=== PATIENT | male | born 1975 | race Caucasian/White ===

== ENCOUNTER 2017-04-13 08:14 | Emergency (ER) | payer SELFPAY ==
[~2017-04-13] VITALS: Ht 175.3 cm; Wt 70.0 kg
[~2017-04-13 08:14] MED LIST: PERC7.5T13 PO
[2017-04-13 08:19] VITALS: BP 122/80; PULSE 92; RESP 12; TEMP 98; O2SAT 97
--- NOTE | 2017-04-13 09:33 | RADRPT ---
EXAM DATE/TIME: 04/13/2017 09:07 [facility] COMPARISON: CHEST SINGLE AP, September 02, 2013, 16:03. INDICATIONS : Chest pain and general weakness. MEDICAL HISTORY : Hypertension. SURGICAL HISTORY : None. ENCOUNTER: Initial ACUITY: 1 day PAIN SCORE: 8/10 LOCATION: Bilateral chest FINDINGS: A single view of the chest demonstrates the lungs to be symmetrically aerated without evidence of mas s, infiltrate or effusion. The cardiomediastinal contours are unremarkable. Osseous structures are intact. CONCLUSION: No acute disease. Riky Hutton MD on April 13, 2017 at 9:31 Board Certified Radiologist. This report was verified electronically.
[2017-04-13 09:38] LABS: AUTOMATED NEUTROPHIL # 7.2 TH/MM3 (1.8-7.7); BASOPHIL # 0.1 TH/MM3 (0-0.2); BASOPHIL % 0.5 % (0.0-2.0); EOSINOPHIL # 0.3 TH/MM3 (0-0.4); EOSINOPHIL % 2.5 % (0.0-4.0); HEMATOCRIT 51.5 % (39.0-51.0); HEMO FLAGS DIFF FINAL; LYMPH % 21.5 % (9.0-44.0); LYMPHOCYTE # 2.3 TH/MM3 (1.0-4.8); MEAN CELL VOLUME 96.4 FL (80.0-100.0); MEAN CORPUSCULAR HEMOGLOBIN 32.5 PG (27.0-34.0); MEAN CORPUSCULAR HGB CONC 33.7 % (32.0-36.0); MONO % 7.4 % (0.0-8.0); NEUT % 68.1 % (16.0-70.0); PLATELET COUNT 445 TH/MM3 (150-450); RED BLOOD COUNT 5.34 MIL/MM3 (4.50-5.90); WHITE BLOOD COUNT 10.5 TH/MM3 (4.0-11.0)
[2017-04-13 09:49] LABS: ANION GAP 7 MEQ/L (5-15); AST (GOT) 27 U/L (15-37); BICARBONATE 31.6 MEQ/L (21.0-32.0); BLOOD UREA NITROGEN 8 MG/DL (7-18); CHLORIDE 103 MEQ/L (98-107); GLOMERULAR FILTRATION RATE 101 ML/MIN (>89); POTASSIUM 4.3 MEQ/L (3.5-5.1); SODIUM (NA) 142 MEQ/L (136-145)
[2017-04-13 09:50] LABS: ALT (GPT) 31 U/L (12-78)
[2017-04-13 09:54] LABS: ALKALINE PHOSPHATASE 69 U/L (45-117); CREATINE KINASE 187 U/L (39-308); TOTAL BILIRUBIN ADULT 0.2 MG/DL (0.2-1.0)
--- NOTE | 2017-04-13 09:55 | RADRPT ---
EXAM DATE/TIME: 04/13/2017 09:23 [facility] COMPARISON: No previous studies available for comparison. INDICATIONS : Altered mental status, difficulty walking. RADIATION DOSE: 56.35 CTDIvol (mGy) MEDICAL HISTORY : Cardiovascular disease. Hypertension. SURGICAL HISTORY : None. ENCOUNTER: Initial ACUITY: 1 day PAIN SCALE: 0/10 LOCATION: cranial TECHNIQUE: Multiple contiguous axial images were obtained of the head. Using automated exposure control and adj ustment of the mA and/or kV according to patient size, radiation dose was kept as low as reasonably a chievable to obtain optimal diagnostic quality images. DICOM format image data is available electro nically for review and comparison. FINDINGS: CEREBRUM: The ventricles are normal for age. No evidence of midline shift, mass lesion, hemorrhage or acute in farction. No extra-axial fluid collections are seen. POSTERIOR FOSSA: The cerebellum and brainstem are intact. The 4th ventricle is midline. The cerebellopontine angle i s unremarkable. EXTRACRANIAL: The visualized portion of the orbits is intact. SKULL: The calvaria is intact. No evidence of skull fracture. CONCLUSION: No acute disease. Riky Hutton MD on April 13, 2017 at 9:53 Board Certified Radiologist. This report was verified electronically.
[2017-04-13 10:06] LABS: CKMB 1.5 NG/ML (0.5-3.6)
--- NOTE | 2017-04-13 10:13 | RADRPT ---
EXAM DATE/TIME: 04/13/2017 09:23 [facility] COMPARISON: CT CERVICAL SPINE W/O CONTRAST, July 15, 2014, 15:15. INDICATIONS : Found on ground with altered mental status. RADIATION DOSE: 36.25 CTDIvol (mGy) MEDICAL HISTORY : Cardiovascular disease. Hypertension. SURGICAL HISTORY : None. ENCOUNTER: Initial ACUITY: 1 day PAIN SCALE: 0/10 LOCATION: neck TECHNIQUE: Volumetric scanning of the cervical spine was performed. Multiplanar reconstructions in the sagittal, coronal and oblique axial planes were performed. Using automated exposure control and adjustment o f the mA and/or kV according to patient size, radiation dose was kept as low as reasonably achievable to obtain optimal diagnostic quality images. DICOM format image data is available electronically f or review and comparison. FINDINGS: Craniocervical and cervical vertebral body alignment are stable without evidence of listhesis. Vertebral bodies and posterior elements are intact. There is no evidence of acute fracture or facet s ubluxation. Degenerative disease with spondylosis is again noted. There is been no significant progression. There are no soft tissue abnormalities. CONCLUSION: Stable appearance of the cervical spine without evidence of traumatic listhesis or fracture. Riky Hutton MD on April 13, 2017 at 10:08 Board Certified Radiologist. This report was verified electronically.
--- NOTE | 2017-04-13 10:27 | PD ---
HPI . Fall Chief Complaint: Medical Clearance Time Seen by Provider: 08:50 Travel History International Travel<30 days: No Contact w/Intl Traveler<30days: No Traveled to known affect area: No History of Present Illness HPI 41-year-old male patient presents emergency department for evaluation after allegedly falling backwards and hitting his head last night. Patient states he normally drinks beer but last night was drinking liquor. He cannot remember how many drinks he had. He states he became "blackout drunk". Patient states he fell backwards and hit his head. He is complaining of head pain and neck pain currently. Patient also is complaining of nausea without vomiting. Patient is complaining of chest pain and shortness breath. Patient is ambulating in the jaffe. Asking the nurse to use the phone to call. Patient is ambulatory without issue. Patient is in no acute distress. Patient is covered in sand as [place] the [place] and [place] out there. PFSH Past Medical History Atrial Fibrillation: Yes Blood Disorders: No Anxiety: Yes Cardiovascular Problems: Yes (recently dx with "irregular heartbeat") Diabetes: No Diminished Hearing: No Hypertension: Yes Influenza Vaccination: No Past Surgical History Surgical History: No Previous Surgery Social History Alcohol Use: Yes (liquor last night) Tobacco Use: Yes (1/2 ppd) Substance Use: Yes Allergies-Medications (Allergen,Severity, Reaction): Coded Allergies: No Known Allergies (Verified , 08/03/14) Reported Meds & Prescriptions Reported Meds & Active Scripts Active No Active Prescriptions or Reported Medications Review of Systems Except as stated in HPI: all other systems reviewed are Neg Physical Exam Narrative GENERAL: Well-nourished, well-developed 41-year-old male patient in no acute distress covered in sand. Nontoxic appearing. SKIN: Focused skin assessment warm/dry. HEAD: Normocephalic. Small hematoma noted to the right lateral occipital portion of the skull. EYES: No scleral icterus. No injection or drainage. NEUROLOGICAL: Awake and alert. Cranial nerves II through XII intact. Motor and sensory grossly within normal limits. Five out of 5 muscle strength in all muscle groups. Normal speech. NECK: Supple, trachea midline. No JVD or lymphadenopathy. CARDIOVASCULAR: Regular rate and rhythm without murmurs, gallops, or rubs. RESPIRATORY: Breath sounds equal bilaterally. No accessory muscle use. GASTROINTESTINAL: Abdomen soft, non-tender, nondistended. MUSCULOSKELETAL: No cyanosis, or edema. BACK: Cervical midline spinal tenderness. No obvious deformity, ecchymosis, erythema or cyanosis. No CVA tenderness. Data Data Last Documented VS Vital Signs Date Time Temp Pulse Resp B/P (MAP) Pulse Ox O2 Delivery O2 Flow Rate FiO2 04/13/17 10:54 04/13/17 08:19 98.0 [address] Brain W/O Iv Contrast(Rout) (04/13/17 09:) Ct Cerv Spine W/O Contrast (04/13/17:) Electrocardiogram (04/13/17:) Ckmb (Isoenzyme) Profile (04/13/17:) Complete Blood Count With Diff (04/13/17:) Comprehensive Metabolic Panel (04/13/17:) Magnesium (Mg) (04/13/17:) Troponin I (04/13/17:) Lipase (04/13/17:) Chest, Single Ap (04/13/17:) Ecg Monitoring (04/13/17:) Bilateral Bp Monitoring (04/13/17:) Iv Access Insert/Monitor (04/13/17:) Oximetry (04/13/17:) CKMB (04/13/17:24) CKMB% (04/13/17:24) Ed Discharge Order (04/13/17 10:33) Labs Laboratory Tests Test 04/13/17 09:24 White Blood Count 10.5 TH/MM3 Red Blood Count 5.34 MIL/MM3 Hemoglobin 17.4 GM/DL Hematocrit 51.5 % Mean Corpuscular Volume 96.4 FL Mean Corpuscular Hemoglobin 32.5 PG Mean Corpuscular Hemoglobin Concent 33.7 % Red Cell Distribution Width 14.0 % Platelet Count 445 TH/MM3 Mean Platelet Volume 8.8 FL Neutrophils (%) (Auto) 68.1 % Lymphocytes (%) (Auto) 21.5 % Monocytes (%) (Auto) 7.4 % Eosinophils (%) (Auto) 2.5 % Basophils (%) (Auto) 0.5 % Neutrophils # (Auto) 7.2 TH/MM3 Lymphocytes # (Auto) 2.3 TH/MM3 Monocytes # (Auto) 0.8 TH/MM3 Eosinophils # (Auto) 0.3 TH/MM3 Basophils # (Auto) 0.1 TH/MM3 CBC Comment DIFF FINAL Differential Comment Blood Urea Nitrogen 8 MG/DL Creatinine 0.84 MG/DL Random Glucose 89 MG/DL Total Protein 8.6 GM/DL Albumin 4.1 GM/DL Calcium Level 8.6 MG/DL Magnesium Level 2.0 MG/DL Alkaline Phosphatase 69 U/L Aspartate Amino Transf (AST/SGOT) 27 U/L Alanine Aminotransferase (ALT/SGPT) 31 U/L Total Bilirubin 0.2 MG/DL Sodium Level 142 MEQ/L Potassium Level 4.3 MEQ/L Chloride Level 103 MEQ/L Carbon Dioxide Level 31.6 MEQ/L Anion Gap 7 MEQ/L Estimat Glomerular Filtration Rate 101 ML/MIN Total Creatine Kinase 187 U/L Creatine Kinase MB 1.5 NG/ML Troponin I LESS THAN 0.02 NG/ML Lipase 109 U/L MDM Medical Decision Making Medical Screen Exam Complete: Yes Emergency Medical Condition: Yes Differential Diagnosis Differential diagnosis include but are not limited to alcohol abuse, fall, ICH, cervical spine injury, whiplash, neck pain, contusion Narrative Course 41-year-old male patient presents emergency department after drinking liquor last night and allegedly falling and hitting the back of his head when he was "blackout drunk". Patient is unsure how many alcoholic beverages he consumed last night. However he is walking with a steady gait and brought himself to the emergency Department through triage. There is a small hematoma noted to the right occipital portion of his skull. Patient is complaining of neck pain and has cervical midline tenderness. Patient has no obvious injuries, deformities, ecchymosis, cyanosis. Patient is complaining of chest pain or shortness breath. Patient is a pack-a-day smoker. Patient has no neurological deficits. Patient's EKG is sinus rhythm. Head CT shows no acute O'Joce. Cervical CT shows no acute abnormality. Chest x-ray shows no acute abnormality. Patient's blood work is unremarkable. Patient's case discussed with my attending, Dr. Mills and based on the patient's vital signs, imaging, blood work, clinical presentation, physical exam is highly unlikely that there is any acute disease process at this time. Patient is resting comfortably on the stretcher and ambulatory in the halls asking to use the phone intermittently. Patient will be discharged home with instructions to avoid heavy drinking in the future and to return the emergency Department with any worsening condition. Laboratory Tests Test 04/13/17 09:24 White Blood Count 10.5 TH/MM3 Red Blood Count 5.34 MIL/MM3 Hemoglobin 17.4 GM/DL Hematocrit 51.5 % Mean Corpuscular Volume 96.4 FL Mean Corpuscular Hemoglobin 32.5 PG Mean Corpuscular Hemoglobin Concent 33.7 % Red Cell Distribution Width 14.0 % Platelet Count 445 TH/MM3 Mean Platelet Volume 8.8 FL Neutrophils (%) (Auto) 68.1 % Lymphocytes (%) (Auto) 21.5 % Monocytes (%) (Auto) 7.4 % Eosinophils (%) (Auto) 2.5 % Basophils (%) (Auto) 0.5 % Neutrophils # (Auto) 7.2 TH/MM3 Lymphocytes # (Auto) 2.3 TH/MM3 Monocytes # (Auto) 0.8 TH/MM3 Eosinophils # (Auto) 0.3 TH/MM3 Basophils # (Auto) 0.1 TH/MM3 CBC Comment DIFF FINAL Differential Comment Blood Urea Nitrogen 8 MG/DL Creatinine 0.84 MG/DL Random Glucose 89 MG/DL Total Protein 8.6 GM/DL Albumin 4.1 GM/DL Calcium Level 8.6 MG/DL Magnesium Level 2.0 MG/DL Alkaline Phosphatase 69 U/L Aspartate Amino Transf (AST/SGOT) 27 U/L Alanine Aminotransferase (ALT/SGPT) 31 U/L Total Bilirubin 0.2 MG/DL Sodium Level 142 MEQ/L Potassium Level 4.3 MEQ/L Chloride Level 103 MEQ/L Carbon Dioxide Level 31.6 MEQ/L Anion Gap 7 MEQ/L Estimat Glomerular Filtration Rate 101 ML/MIN Total Creatine Kinase 187 U/L Creatine Kinase MB 1.5 NG/ML Troponin I LESS THAN 0.02 NG/ML Lipase 109 U/L Last Impressions Head CT 04/13/17900 Signed Impressions: Service Date/Time: Thursday, April 13, 2017 09:23 - CONCLUSION: No acute disease. Riky Hutton MD Chest X-Ray 04/13/17900 Signed Impressions: Service Date/Time: Thursday, April 13, 2017 09:07 - CONCLUSION: No acute disease. Riky Hutton MD Cervical Spine CT 04/13/17 0901 Signed Impressions: Service Date/Time: Thursday, April 13, 2017 09:23 - CONCLUSION: Stable appearance of the cervical spine without evidence of traumatic listhesis or fracture. Riky Hutton MD Diagnosis Primary Impression: Alcohol abuse Referrals: [facility] (Out patient) Patient Instructions: Abuse of Alcohol (ED), General Instructions Additional Instructions: Please return to emergency department if your symptoms return or worsen. Follow up with your primary care provider. Avoid alcohol intoxication. Supportive care, stay hydrated, get enough rest, diet as tolerated. Scripts No Active Prescriptions or Reported Meds Disposition: 01 DISCHARGE HOME Condition: Stable LucinaNisa Osiris NINA Apr 13, 2017 10:27
--- NOTE | 2017-04-14 13:00 | EKG ---
Date Performed: 04/13/2017 Time Performed: 09:25:53 PTAGE: 41 years EKG: Sinus rhythm NORMAL ECG Since PREVIOUS TRACING , no significant change noted PREVIOUS TRACIN09/02/2013 16.23 DOCTOR: Brandon Jorge Interpretating Date/Time 04/14/2017 12:58:06
== END 2017-04-13 10:54 | disposition home or self-care (01) ==
LOC: NEPD 08:14
DX: F10.10 Alcohol abuse, uncomplicated (principal); S00.03XA Contusion of scalp, initial encounter; M54.2 Cervicalgia; I48.91 Unspecified atrial fibrillation; F41.9 Anxiety disorder, unspecified; I10 Essential (primary) hypertension; F17.200 Nicotine dependence, unspecified, uncomplicated; W18.00XA Striking against unspecified object with subsequent fall, initial encounter
CPT/HCPCS: 70450; 71010; 72125; 80053; 82550; 82552; 83690; 83735; 84484; 85025; 93005; 99285